=== PATIENT | female | born 1955 | race Caucasian/White ===

== ENCOUNTER 2022-06-21 07:52 | Inpatient (IN) | payer OTHER ==
[~2022-06-21] VITALS: Ht 152.4 cm; Wt 58.5 kg
[2022-06-21] VITALS (12 sets, daily range): BP systolic 86–145; BP diastolic 47–97
[2022-06-21] MEDS ORDERED: PIPERACILLIN/TAZOBACTAM 3.375 GM in DEXTROSE 5% 50 ML IV ONE (08:05)
[2022-06-21] MEDS ORDERED: ACETAMINOPHEN 650 MG SUPP RC ONE (08:05)
[2022-06-21] MEDS ORDERED: NACL 0.9% 1,000 ML IV ONE ×2 (08:05→09:15)
--- NOTE | 2022-06-21 08:09 | NUR ---
PT RECEIVED, CARE ASSUMED. PT CONFUSSED. PT BIB EMS FOR EVALAUTION OF SOB, LOW 02@ 81%. CALLED RT, PT PLACED ON NON-REBREATHER MASK @ 14, CONNECTED TO TELE MONITOR: SR 90, INSERTED 22G IV TO LEFT WRIST, AWAITIN TO BE SEEN BY
[2022-06-21 08:33] LABS: BASOPHILS # (AUTO) 0.1 K/uL (0.00-0.22); BASOPHILS % (AUTO) 0.7 % (0.0-2.0); EOSINOPHILS % (AUTO) 0.1 % (0.0-4.0); HEMATOCRIT 29.2 % (36-48); HEMOGLOBIN 9.3 g/dL (12.0-16.0); LYMPHOCYTES # (AUTO) 1.3 K/uL (2.5-16.5); LYMPHOCYTES % (AUTO) 13.7 % (20.5-51.1); MEAN CORPUSCULAR HEMOGLOBIN 30 pg (27-31); MEAN CORPUSCULAR HGB CONC 32 g/dL (33-37); MONOCYTES # (AUTO) 0.3 K/uL (0.8-1.0); NEUTROPHILS # (AUTO) 7.8 K/uL (1.8-7.7); NEUTROPHILS % (AUTO) 82.5 % (42.2-75.2); PLATELET COUNT (AUTO) 210 K/uL (140-450); RED BLOOD CELL COUNT(AUTO) 3.11 MIL/uL (4.20-5.40); RED CELL DISTRIBUTION WIDTH 14.6 % (11.6-13.7); WHITE BLOOD COUNT (AUTO) 9.4 K/uL (4.8-10.8)
--- NOTE | 2022-06-21 09:07 | NUR ---
PT STARTED ON HIGH FLOW NASAL CANNULA 40L 100% TEMP 33 C. SPO2 97% NO SOB NOTED.
[2022-06-21 09:08] LABS: LIPASE 131 U/L (73-393)
[2022-06-21] MEDS ORDERED: PIPERACILLIN/TAZOBACTAM 3.375 GM VIAL IV ONE (09:17)
[2022-06-21 09:21] LABS: PROTHROMBIN TIME 10.2 secs (10.8-13.4)
--- NOTE | 2022-06-21 09:33 | NUR ---
RECHECKED TEMPERATURE FROM 102.6 TO 99.6
--- NOTE | 2022-06-21 10:01 | NUR ---
PT LAYING IN BED WITH HIGH FLOW 02, IVF RUNNING WELL, F/C AND URINE COLLECTED. VITAL SIGNS NOTED. WILL CONTINUE TO MONITOR
[2022-06-21 11:08] LABS: APPEARANCE,URINE SL CLOUDY (CLEAR); BILIRUBIN,URINE NEGATIVE (NEGATIVE); BLOOD, URINE 1+ (NEGATIVE); COLOR,URINE YELLOW (YELLOW); LEUKOCYTE ESTERASE ,URINE TRACE (NEGATIVE); NITRITE, URINE POSITIVE (NEGATIVE); UGLUCOSE NEGATIVE (NEGATIVE)
[2022-06-21 12:18] LABS: RBC,URINE 0-5 /HPF (0-5)
[2022-06-21 12:19] LABS: COARSE GRANULAR CASTS,URINE 0-10 /LPF (None Seen)
--- NOTE | 2022-06-21 12:30 | NUR ---
NOTED: BLOOD PRESSURE HAS BEEN DECLINING. DR JOHNSON IS AWARE. PT ON TRENDELENBURG POSITION. WILL CONTINUE TO MONITOR
[2022-06-21] MEDS ORDERED: NOREPINEPHRINE 4 MG in DEXTROSE 5% 250 ML IV ONE (12:50)
--- NOTE | 2022-06-21 12:52 | NUR ---
PER DR HOLGUIN, PT TO BE PLACED ON LEVAPHED DRIP.
[2022-06-21 13:17] LABS: ALBUMIN 1.9 g/dL (3.4-5.0); ANION GAP 17.6 (8-16); CARBON DIOXIDE 21.4 mmol/L (21-32); CREATININE 2.6 mg/dL (0.6-1.3); TOTAL BILIRUBIN 0.2 mg/dL (0.0-1.0)
--- NOTE | 2022-06-21 13:20 | NUR ---
STARTED PT ON LEVAPHEN DRIP @ 4CG, 15ML/HR. WILL CONTINUE TO MONITOR
--- NOTE | 2022-06-21 14:12 | NUR ---
BP 88/55. RAISED LEVAPHED TO 6MCG/MIN. WILL CONTINUE TO MONITOR
[2022-06-21] MEDS ORDERED: ACETAMINOPHEN 325 MG TAB PO PRN (14:40)
[2022-06-21] MEDS ORDERED: ONDANSETRON 4 MG/2 ML VIAL IVP PRN (14:40)
[2022-06-21] MEDS ORDERED: ALBUTEROL SULFATE/IPRATROPIU 3 ML SOL IH PRN (14:40)
[2022-06-21] MEDS ORDERED: NACL 0.9% 1,000 ML IV SCH (14:40)
[2022-06-21] MEDS ORDERED: HYDROcodone/APAP 7.5/325 MG 1 TAB PO PRN (14:40)
[2022-06-21] MEDS ORDERED: ASCO-518 PO (14:49)
[2022-06-21] MEDS ORDERED: TRAZ-343 PO (14:49)
[2022-06-21] MEDS ORDERED: VITA1TAB44 PO (14:49)
[2022-06-21] MEDS ORDERED: RISP0.5T3 PO (14:49)
[2022-06-21] MEDS ORDERED: ATI.5 PO (14:49)
[2022-06-21] MEDS ORDERED: DIVA250E1 PO ×2 (14:49)
[2022-06-21] MEDS ORDERED: VANCOMYCIN PER PHARMACY MC PRN (14:55)
[2022-06-21] MEDS ORDERED: traZODone 50 MG TAB PO PRN (14:55)
[2022-06-21] MEDS ORDERED: POTASSIUM CHLORIDE 10 MEQ TABER PO PRN (14:55)
[2022-06-21] MEDS ORDERED: MAG SULF 2000 MG/WATER PREMIX 50 ML IV PRN (14:55)
--- NOTE | 2022-06-21 15:00 | NUR ---
Received pt lethargic. On high flow nasal cannula 40L, 95%. Sinus rhythm on monitor. Abd with active bowel sounds. Avalos catheter intact and draining to BSD. Peripheral IV on left hand 20 gauge intact and patent. Peripheral IV on APRYL intact and patent infusing Levophed @4mcg/min. Peripheral IV on right wrist saline locked. Safety precautions in place.
--- NOTE | 2022-06-21 15:05 | NUR ---
Patient will be admitted to care of ICU 7. Admited to ICU. Will go to room. Belongings list completed. Report to .
--- NOTE | 2022-06-21 15:54 | NUR ---
TITRATED FIO2 TO 80%. PT TOLERATING WELL, SPO2 97% HR 88 RR 20. WILL CONTINUE TO MONITOR.
[2022-06-21] MEDS ORDERED: VANCOMYCIN 500 MG in DEXTROSE 5% 100 ML IV SCH (18:00)
--- NOTE | 2022-06-21 18:05 | NUR ---
PT TITRATED TO FIO2 OF 70% TOLERATING WELL. SPO2 97% HR 66 RR 14. WILL ENDORSE TO SUPERVISOR HARD CANDY.
[2022-06-21] MEDS ORDERED: NOREPINEPHRINE 4 MG in DEXTROSE 5% 250 ML IV PRN (19:05)
--- NOTE | 2022-06-21 19:20 | NUR ---
Received report from Yolanda GRENE ANALYTICS ANALYST for continuity of care. Initial assessment done (Please see Flowsheet for complete Physical assessment)
[2022-06-21] MEDS: KCL 20 MEQ/WATER INJ PREMIX 200 ML IV PRN (19:21)
--- NOTE | 2022-06-21 19:33 | NUR ---
Endorsed to night coordinator nurse for continuity of care.
--- NOTE | 2022-06-21 21:00 | NUR ---
Patient taken to CT Head via Bed, Tolerated well.
--- NOTE | 2022-06-21 21:06 | NUR ---
PT TRANSPORTED TO CT AND BACK TO ICU 7 W/ NO ADVERSE EVENTS PT TOLERATED TRANSPORT WELL WILL CONTINUE TO MONITOR
[2022-06-21] MEDS: PIPERACILLIN/TAZOBACTAM 2.25 GM in DEXTROSE 5% 50 ML IV SCH (21:21)
[2022-06-21] MEDS: risperiDONE 1 MG TAB PO SCH (21:22)
[2022-06-21] MEDS: DOCUSATE SODIUM 100 MG GELCAP PO SCH (21:22)
[2022-06-21] MEDS: DIVALPROEX 250 MG TABEC PO SCH (21:23)
--- NOTE | 2022-06-21 21:40 | NUR ---
Due medications given, Tolerated well. Will closely Monitor for any adverse reactions that may occur.
--- NOTE | 2022-06-21 23:10 | NUR ---
HFNC TITRATED TO 36L 55% AND TOLERATING WELL AT THIS TIME W/ CURRENT SPO2 97% 5 MIN POST TITRATION
[2022-06-22] VITALS (23 sets, daily range): BP systolic 88–165; BP diastolic 54–98
--- NOTE | 2022-06-22 02:00 | NUR ---
Turn & Repositioned q2h as ordered. No pain or discomfort noted, No cardio-respiratory distress noted at this time. Patient Sleeping calmly.
[2022-06-22] MEDS: DIVALPROEX 250 MG TABEC PO SCH ×3 (05:00→21:55)
[2022-06-22] MEDS: PIPERACILLIN/TAZOBACTAM 2.25 GM in DEXTROSE 5% 50 ML IV SCH ×3 (05:37→21:56)
[2022-06-22 05:58] LABS: BASOPHILS % (AUTO) 0.3 % (0.0-2.0); EOSINOPHILS # (AUTO) 0.1 K/uL (0-0.4); EOSINOPHILS % (AUTO) 1.1 % (0.0-4.0); HEMATOCRIT 32.1 % (36-48); HEMOGLOBIN 10.1 g/dL (12.0-16.0); LYMPHOCYTES # (AUTO) 1.8 K/uL (2.5-16.5); LYMPHOCYTES % (AUTO) 17.4 % (20.5-51.1); MEAN CORPUSCULAR HEMOGLOBIN 30 pg (27-31); MEAN CORPUSCULAR HGB CONC 31 g/dL (33-37); MEAN CORPUSCULAR VOLUME 96.7 fL (80-94); MONOCYTES # (AUTO) 0.3 K/uL (0.8-1.0); MONOCYTES % (AUTO) 2.7 % (1.7-9.3); NEUTROPHILS # (AUTO) 8.2 K/uL (1.8-7.7); NEUTROPHILS % (AUTO) 78.5 % (42.2-75.2); PLATELET COUNT (AUTO) 236 K/uL (140-450); RED BLOOD CELL COUNT(AUTO) 3.32 MIL/uL (4.20-5.40); RED CELL DISTRIBUTION WIDTH 14.8 % (11.6-13.7); WHITE BLOOD COUNT (AUTO) 10.5 K/uL (4.8-10.8)
[2022-06-22 06:41] LABS: ANION GAP 15.7 (8-16); CARBON DIOXIDE 23.4 mmol/L (21-32); CREATININE 1.6 mg/dL (0.6-1.3); POTASSIUM 4.1 mmol/L (3.5-5.1)
[2022-06-22 06:59] LABS: MAGNESIUM 3.2 mg/dL (1.8-2.4); PHOSPHORUS 3.3 mg/dL (2.5-4.9)
[2022-06-22] MEDS: ALBUTEROL SULFATE/IPRATROPIU 3 ML SOL IH SCH ×3 (07:00→19:00)
--- NOTE | 2022-06-22 07:25 | NUR ---
Endorse pt. to Eli, AM Charge RECORDING [employer]UD[employer], for continuity of care. All questions answered. No pain, discomfort noted at this time, on Highflow @fiO2= 33%, sating 98%, Levophed Drip @ 4mcg/min.
--- NOTE | 2022-06-22 07:30 | NUR ---
RECEIVED ENDOSEMENT FROM [facility] PT. IS SLEEPING AT THE TIME , EASILY AWAKE BY NAME DID NOT FLLLOW COMMAND SHE IS O2 BY HIFLOW AT 33% O2SAT 94%IV FLUID NS AT 120 ML/HR FAUSTIN CATH DRAIN YELLOW URINE. SKIN DRY AND WARM TO TOUCH HAS SOME RED SPOT ON HER FACIAL.
[2022-06-22 08:20] LABS: PROTHROMBIN TIME 9.9 secs (10.8-13.4)
[2022-06-22] MEDS: risperiDONE 1 MG TAB PO SCH ×2 (08:35→21:55)
[2022-06-22] MEDS: PANTOPRAZOLE 40 MG INJ VIAL IVP SCH (08:35)
[2022-06-22] MEDS: VIT-B COMP/VIT-C/FOLIC ACID 1 TAB PO SCH (08:35)
[2022-06-22] MEDS: DOCUSATE SODIUM 100 MG GELCAP PO SCH ×2 (08:35→21:55)
[2022-06-22] MEDS: ASCORBIC ACID 500 MG TAB PO SCH (08:36)
[2022-06-22] MEDS ORDERED: NON-FORMULARY ITEM (Ascorbic Acid (Vitamin C) 500 MG) PO SCH (09:00)
--- NOTE | 2022-06-22 09:00 | NUR ---
ABLE TO SWALLOW HER MED CRUSH WITH APPLE SOURCE.
--- NOTE | 2022-06-22 09:15 | NUR ---
PATIENT HAS BEEN SCREENED AND CATEGORIZED HIGH NUTRITION RISK. PATIENT WILL BE SEEN WITHIN 1-2 DAYS OF ADMISSION. 06/22/2212 CONSULT RECEIVED FOR MALNUTRITION TACO ROBB RD
[2022-06-22] MEDS ORDERED: DEXTROSE 5% 500 ML IV SCH (11:15)
--- NOTE | 2022-06-22 12:45 | NUR ---
REPOSITION HAS SMERE DARK GREENISH BM.
--- NOTE | 2022-06-22 12:45 | NUR ---
DC PLANNIN YRS OLD FEMALE PATIENT WAS ADMITTED FROM [facility] WITH A DX OF SEPSIS AND HYPOTENSION. PATIENT HAS A HX OF COPD, SCHIZOAFFECTIVE TYPE BIPOLAR DEMENTIA AND CKD. CXR SHOWED BIBASILAR OPACITIES SUSPECT PNEUMONIA OR ATELECTASIS. CT HEAD NO EVIDENCE OF ACUTE INTRACRANIAL HEMORRHAGE. RAPID COVID TEST NEGATIVE. ADMINISTERED IVF, IV ABX ZOSYN AND VANCOMYCIN. ON LEVOPHED DRIP FOR LOW BP 94/57 . ON HF 40L/NC FIO2 70%. CONSULTED WITH PULMO, ID AND NEPHRO. DC PLAN TO RETURN TO [facility] WHEN STABLE. CM TO FOLLOW Addendum: 06/27/22 at 1304 by Nabila Keen RN DC PLANNING: PATIENT HAS A DC ORDER TO RETURN TO [facility]. CALLED [facility] SPOKE WITH MOE , ACCEPTED PATIENT CAN GO TO ROOM # TO GIVE REPORT [phone] MOE ARRANGED TRANSPORT RIVET BUCKER TIME BETWEEN 4-5PM WITH PERSONAL CARE TRANSPORTATION. NOTIFIED CHERI RICHTER
--- NOTE | 2022-06-22 12:46 | NUR ---
WOUND CARE EVALUATION NOTE: SKIN ASSESSMENT DONE WITH PRIMARY RN JOANNE ON THIS 66 Y/O PT. ADMITTED FROM SNF WITH HYPOXIA AND HYPOTENSION. PAST MEDICAL HX INCLUDES COPD, SCHIZOAFFECTIVE TYPE BIPOLAR, MDD, DEMENTIA, AND CKD. ALL ABOVE INFORMATION OBTAINED FROM ADMISSION H&P AND CHART REVIEWED. PT ADMITTED WITH UNSTAGEABLE COCCYX WOUND AND DTI TO SACRAL AREA. PT. IS ON LEVOPHED. PT IS AWAKE, SKIN IS WARM AND MOIST, BLE HAIR GROWTH, +1 EDEMA. DORSAL PEDAL PULSES PRESENT AND DIMINISHED. CAPILLARY REFILLED >3 SEC. X 10 TOES. COLD TO TOUCH, HEELS OFFLOAD, PT. WITH FEVER AND RESP. BETWEEN 19-34/ PER MINUTES DURING SKIN ASSESSMENT. PT IS VERY HI RISK OF FURTHER SKIN BREAKS. POC DISCUSSED WITH PRIMARY RN. COMORBIDITIES RELATED TO DELAY WOUND HEALING, FURTHER SKIN BREAKS AND UN-AVOIDABLE PRESSURE INJURY: BOWEL INCONTINENCE, INFECTION, , MALNUTRITION, HYPOXEMIC DECREASE TISSUE PERFUSION, TISSUE ISCHEMA, DECREASE MOBILITY AND FUNCTIONAL ABILITIES, AND HOB ELEVATED THE MAJORITY OF TIMES DUE TO MEDICAL REASONS. INTEGUMENTARY: -ORAL MEMBRANE PINK INTACT, LIPS, CHEEKS SKIN DRY, NO OPEN WOUNDS -MOISTURE ASSOCIATED DERMATITIS PERINEUM/INNER THIGHS, LOWER BUTTOCKS AND CHELLY-ANAL, SKIN RED AND MOIST -COCCYX PRESSURE INJURY UN-STAGEABLE 1X1.5CM, CHELLY-WOUND SKIN MOIST BLISTERING SKIN, THIN WITH DENUDED SKIN, SURROUNDING DTI EXTENDED TO SACRAL AREA 6x9CM IRREGULAR SHAPE, FURTHER DAMAGE INDICATED RECOMMENDATIONS: -APPLY Z-GUARD TO PERINEUM/INNER THIGHS, LOWER BUTTOCKS AND CHELLY-ANAL BID AND PRN IF SOILING -APPLY FOAM DRESSING TO SACRALCOCCYX, QD AND PRN IF SOILING, OFFLOAD AREA -APPLY SKIN PREP WIPE TO BILATERAL HEELS BID AND PRN IF SOILING -POSITIONING: TURN AND REPOSITION PATIENT Q 2H OR SOONER USE PILLOWS TO KEEP BONY PROMINENCES FROM DIRECT CONTACT WITH SURFACES USE REPOSITIONING WEDGES TO PROVIDE 30-DEGREE ANGLE FOR SIDE LYING POSITIONS OFFLOADING OR FOAM DRESSING TO ALL TUBING TO PREVENT MEDICAL DEVICES RELATED PRESSURE INJURY -RE-EVALUATING AND MANAGING INCONTINENCE MONITOR SKIN CONDITION DURING POSITION CHANGE DO NOT MASSAGE REDNESS, BONY PROMINENCES FREQUENT CHELLY-CARE AND PROVIDE BARRIER CREAMS PRN IF SOILING MOISTURE CONTROL BY OFFER BED MIXON/URINAL /ABSORBENT PAD TO WICK AND HOLD MOISTURE. MAY OBTAIN ORDER FOR FLEX SEAL, RECTAL BAG OR FAUSTIN CATHETER PER PHYSICIAN ORDER UNLESS OTHERWISE CONTRAINDICATED KEEP SKIN DRY AND PROTECT FROM FRICTION -MANAGE FRICTION/SHEAR/MOBILITY KEEP HOB AT THE LOWEST LEVEL OF ELEVATION NO MORE THAN 30 DEGREES UNLESS OTHERWISE CONTRAINDICATED USE LIFT SHEET OR TRANSFER DEVICE TO MOVE PATIENT AND PREVENT LATERAL SHEER. CONSIDER TRAPEZE IF APPROPRIATE PROTECT HEELS, ELBOWS BONY PROMINENCES WITH SKIN BERRIES OR FOAM DRESSING IF EXPOSED TO FRICTION OFFLOAD BILATERAL HEELS BY PLACING PILLOWS UNDER CALVES AT ALL TIMES, UNLESS OTHERWISE CONTRAINDICATED -PRESSURE REDISTRIBUTION SURFACE THERAPY NAMITA ISOFLEX ABHISHEK MATTRESS -NUTRITION: PLEASE FOLLOW RD RECOMMENDATIONS AND OFFER NUTRITION SUPPLEMENTS IF ORDERED.
[2022-06-22] MEDS ORDERED: Z-GUARD PASTE TP PRN (12:55)
[2022-06-22] MEDS ORDERED: FOAM DRESSING TP PRN (12:55)
[2022-06-22] MEDS: FOAM DRESSING TP SCH (13:01)
[2022-06-22] MEDS: Z-GUARD PASTE TP SCH (13:01)
--- NOTE | 2022-06-22 13:45 | NUR ---
SEEN BY DR. ADAMS AT BEDSIDE NO ORDER CHANGED.
--- NOTE | 2022-06-22 14:02 | NUR ---
SEEN BY DR MIRANDA WITH STUDENTS.
[2022-06-22] MEDS ORDERED: NACL 0.45% 1,000 ML IV SCH (16:30)
[2022-06-22 17:35] LABS: ANION GAP 14.4 (8-16); CARBON DIOXIDE 21.9 mmol/L (21-32); CREATININE 1.2 mg/dL (0.6-1.3); POTASSIUM 3.3 mmol/L (3.5-5.1)
[2022-06-22] MEDS ORDERED: acetaZOLAMIDE sodium 500 MG VIAL IVP SCH (18:30)
[2022-06-22] MEDS ORDERED: KCL 20 MEQ/WATER INJ PREMIX 100 ML IV ONE (18:30)
--- NOTE | 2022-06-22 19:10 | NUR ---
REPORT GIVE TO BEVERLY RICHTER.
[2022-06-22] MEDS: DEXTROSE 5% 1,000 ML IV SCH (19:30)
--- NOTE | 2022-06-22 22:30 | NUR ---
CALL PLACED TO DR. ALAN TO OBTAIN AN ORDER FOR A DIFFERENT ROUTE OF ADMINISTERING DEPAKOTE BECAUSE PT WONT SWALLOW IT SHE CONTINOUSLY SPIT IT OUT ALONG WITH THE COLACE. SHE DIDN'T RECEIVE HER [address] ORDER THE ROUTE CHANGE TO IV FOR THE DEPAKOTE; NO MENTION OF THE COLACE.CALLED [facility], JENI SAID IT SHOULD BR IN THE ED,BUT THE ED NURSE COULDN'T LOCATE IT.
[2022-06-23] VITALS (24 sets, daily range): BP systolic 92–155; BP diastolic 54–93
[2022-06-23] MEDS: Z-GUARD PASTE TP SCH ×2 (01:00→13:36)
[2022-06-23] MEDS: DIVALPROEX 250 MG TABEC PO SCH ×3 (05:00→21:12)
[2022-06-23] MEDS: PIPERACILLIN/TAZOBACTAM 2.25 GM in DEXTROSE 5% 50 ML IV SCH ×3 (05:32→21:12)
[2022-06-23 05:56] LABS: BASOPHILS % (AUTO) 0.4 % (0.0-2.0); EOSINOPHILS # (AUTO) 0.2 K/uL (0-0.4); EOSINOPHILS % (AUTO) 2.1 % (0.0-4.0); HEMATOCRIT 28.4 % (36-48); HEMOGLOBIN 9.2 g/dL (12.0-16.0); LYMPHOCYTES # (AUTO) 1.5 K/uL (2.5-16.5); LYMPHOCYTES % (AUTO) 20.4 % (20.5-51.1); MEAN CORPUSCULAR HEMOGLOBIN 30 pg (27-31); MEAN CORPUSCULAR HGB CONC 33 g/dL (33-37); MEAN CORPUSCULAR VOLUME 93.2 fL (80-94); MONOCYTES # (AUTO) 0.3 K/uL (0.8-1.0); MONOCYTES % (AUTO) 3.6 % (1.7-9.3); NEUTROPHILS # (AUTO) 5.5 K/uL (1.8-7.7); NEUTROPHILS % (AUTO) 73.5 % (42.2-75.2); PLATELET COUNT (AUTO) 234 K/uL (140-450); RED BLOOD CELL COUNT(AUTO) 3.05 MIL/uL (4.20-5.40); RED CELL DISTRIBUTION WIDTH 14.4 % (11.6-13.7); WHITE BLOOD COUNT (AUTO) 7.5 K/uL (4.8-10.8)
[2022-06-23] MEDS: ALBUTEROL SULFATE/IPRATROPIU 3 ML SOL IH SCH ×3 (07:03→19:00)
[2022-06-23 07:08] LABS: ANION GAP 13.4 (8-16); CARBON DIOXIDE 23.2 mmol/L (21-32); POTASSIUM 3.6 mmol/L (3.5-5.1)
--- NOTE | 2022-06-23 07:21 | NUR ---
SBAR REPORT RECEIVED FROM BEVERLY RICHTER, ALL CARES ASSUMED. PT RESTING WITH EYES CLOSED. PT ON HIGH FLOW NC 30L 45%. FAUSTIN CATHETER DRAINING TO GRAVITY. D5W INFUSING at 125 mL/hr TO RIGHT 20G AC IV CATHETER. BED IN LOW AND LOCKED POSITION. CALL LIGHT WITHIN REACH.
[2022-06-23 07:23] LABS: FREE T4 (FREE THYROXINE) 0.92 ng/dL (0.76-1.46); MAGNESIUM 2.5 mg/dL (1.8-2.4); PHOSPHORUS 1.7 mg/dL (2.5-4.9); THYROID STIMULATING HORMONE 5.11 uIU/mL (0.34-3.74)
[2022-06-23] MEDS: PANTOPRAZOLE 40 MG INJ VIAL IVP SCH (09:00)
[2022-06-23] MEDS: ASCORBIC ACID 500 MG TAB PO SCH (09:00)
[2022-06-23] MEDS: DOCUSATE SODIUM 100 MG GELCAP PO SCH ×2 (09:00→21:12)
[2022-06-23] MEDS: risperiDONE 1 MG TAB PO SCH ×2 (09:00→21:13)
[2022-06-23] MEDS: VIT-B COMP/VIT-C/FOLIC ACID 1 TAB PO SCH (09:00)
[2022-06-23] MEDS ORDERED: VANCOMYCIN 750 MG in DEXTROSE 5% 250 ML IV SCH (10:00)
[2022-06-23] MEDS: DEXTROSE 5% 1,000 ML IV SCH ×2 (10:20→17:02)
[2022-06-23 10:49] LABS: MAGNESIUM 2.5 mg/dL (1.8-2.4); PHOSPHORUS 1.7 mg/dL (2.5-4.9)
--- NOTE | 2022-06-23 12:58 | NUR ---
LESA PLANNING PATIENT IS A 67 YEAR OLD FEMALE ADMITTED TO [facility]/ED IN 06/21/2022 DUE TO SEPSIS,HYPOTENSION. SW ATTEMPTED TO MEET WITH PATIENT TO DISCUSS AND GATHER HER COLLATERAL INFORMATION. PATIENT WAS NOT AWAKE AND ALERT AT THE TIME OF THE VISIT. PATIENT WAS UNABLE TO PROVIDE HER OWN INFORMATION. SW CALL PATIENT'S VANDANA ELKINS AT TO DISCUSS AND GATHER HER COLLATERAL INFORMATION. PER PATIENT'S POA PATIENT HAS BEEN HER FRIEND FRO SOME TIME BY [employer] ([employer] [employer] [facility] ABOUT 2 YEARS AND HAD LET PATIENT LIVE IN HER TRAILER AND RENT HER A ROOM HOWEVER ABOUT 3 MONTHS AGO IN FEBRUARY PATIENT BECAME ILL AND HER HEALTH DECLINED AND END UP IN THE HOSPITAL SINCE THEN SHE HAS BEEN IN AND OUT OF HOSPITALS AND [facility] AND MUST RECENTLY [facility] WHERE SHE END UP AT [facility]. DUE TO UTI AND OTHER ISSUES WITH BALANCE. PER VANDANA LAU [facility] CONTACT HER ABOUT A WEEK AGO TELLING HER THAT PATIENT CAN NOT STAY THERE ANY LONGER DUE TO THEY NOT BEEN A DETENTION SNF AND [facility] BEEN A REHAB AND YESTERDAY VANDANA JUST FIND OUT THAT PATIENT WAS SEND TO [facility] DUE TO PNEUMONIA. PER VANDANA LAU SHE IS UNABLE TO CARE FOR PATIENT AT HOME AND AT DISCHARGE A DETENTION PLACEMENT NEEDS TO BE FOUND SINCE PATIENT HAS NO OTHER PLACE TO GO. PER VANDANA. PATIENT HAS NO OTHER FAMILY MEMBER AND HER FRIEND AND VANDANA IS HER WITH DOCUMENTS ON CHART. PER VANDANA ELKINS PATIENT RECEIVES SSI OF 970.00 A MONTH AND NO OTHER INCOME. PER VANDANA ELKINS SHE WILL LIKE AN UPDATE ABOUT PATIENT'S PLACEMENT AND HEALTH STATUS WHEN SHE IS READY AND STABLE TO DISCHARGE. ALLIE THANKED VANDANA FOR HER INFORMATION. ALLIE/CM WILL FOLLOW UP NEEDED. ALLIE WILL ENDORSE INFORMATION TO CM AND SKIP TRACER DIRECTOR SANDER Espana. ALLIE WILL CONTACT [facility] WHERE SHE IS COMING FROM. ALLIE ATTEMPTED TO CONTACT [facility] MOE AT SPOKE TO PROJECT PLANNER JOAN WHO REPORTED THAT SHE IS NOT AVAILABLE AND REQUESTED THIS WRITERS DIRECT CONTACT RUTHIE FOR A CALL BACK SINCE SHE IS UNAVAILABLE. ALLIE LEFT DIRECT CONTACT AND SPOKE TO SW/CM DIRECTOR SANDER B. TO EDORSE INFORMATION ABOUT PATIENT WITH FACILITY UNABLE TO RETURN TO [facility] ACCORDING TO PATIENT'S POA. SW/CM AND DIRECTOR WILL FOLLOW UP NEEDED.
[2022-06-23] MEDS: FOAM DRESSING TP SCH (13:36)
--- NOTE | 2022-06-23 14:06 | NUR ---
06/23/22 RD INITIAL ASSESSMENT COMPLETED PLEASE REFER TO NUTRITION ASSESSMENT UNDER CARE ACTIVITY FOR ESTIMATED NUTRITIONAL NEEDS. 1. RECOMMEND CARDIAC DIET WITH TEXTURE MODIFICATION PER SPEECH THERAPIST -RECOMMEND PROSOURCE BID TO PROMOTE WOUND HEALING 2. CONSULT RD PRN 3. MONITOR NUTRITION-RELATED LAB VALUES 4. RD TO FOLLOW-UP 2-3 DAYS, HIGH RISK TACO ROBB RD
[2022-06-23] MEDS ORDERED: LACTULOSE 20 GM/30 ML UDC PO SCH (14:30)
--- NOTE | 2022-06-23 19:10 | NUR ---
RECEIVED REPORT FROM NEELAM BRITO.PT IS IN REPORTED STATUS.RESPIRATORY IS AT THE BEDSIDE REMOVING PT FROM THE HI FLOW NI TECH UNIT AND PLACING HER ON 10 LITERS VIA THE WALL UNIT AT 10L NOW INSTEAD OF THE 14L. PT TEMP IS CONTROLLED TODAY ONLY 97.7AX.SHE IS NOW ON A PUREED DIET. WE WILL SEE IF SHE TAKES THE DEPAKOTE TONIGHT; SHE REPORTEDLY TOOK THE DEPAKOTE PO TODAY W/O SPITTING IT OUT.PT'S NA++ REMAINS ELEVATED SO SJE IS CONTINUING ON THE D5W AT 125CC/HOUR.
--- NOTE | 2022-06-23 19:11 | NUR ---
FOUND PATIENT ON HFNC 14L 40% 33 DEGREES. PATIENT SATING AT 98% SPO2. PATIENT TO BE WEANED TO BUBBLE NASAL CANULA. NO RESPIRTATORY DISTRESS NOTED.
--- NOTE | 2022-06-23 19:15 | NUR ---
PLACED PATIENT ON BUBBLE NASAL CANULA AT 14 L TO SEE HOW THEY WOULD TOLERATE IT AND THEN TITRATED THEM TO 10 L. PATIENTS SPO2 INCREASED TO 100%. WILL CONTINUE TO MONITOR AND SEE IF WE CAN CONTINUE TO TITRATE.
--- NOTE | 2022-06-23 19:21 | NUR ---
SBAR REPORT GIVEN TO BEVERLY RICHTER, ALL CARES ENDORSED.
[2022-06-23] MEDS ORDERED: POTASSIUM CHLORIDE 20% 40 MEQ/15 ML UDC PO PRN (20:25)
[2022-06-24] VITALS (11 sets, daily range): BP systolic 90–158; BP diastolic 57–90
[2022-06-24] MEDS: DEXTROSE 5% 1,000 ML IV SCH
[2022-06-24] MEDS: Z-GUARD PASTE TP SCH ×2 (00:48→13:27)
[2022-06-24] MEDS: PIPERACILLIN/TAZOBACTAM 2.25 GM in DEXTROSE 5% 50 ML IV SCH ×3 (04:57→21:41)
[2022-06-24] MEDS: DIVALPROEX 250 MG TABEC PO SCH ×3 (05:03→21:41)
[2022-06-24 06:00] LABS: ANION GAP 14.8 (8-16); CARBON DIOXIDE 21.6 mmol/L (21-32); CREATININE 0.8 mg/dL (0.6-1.3); POTASSIUM 3.4 mmol/L (3.5-5.1)
--- NOTE | 2022-06-24 06:02 | NUR ---
PT DIDN'T HAVE A BM THIS AM. NO MORE DIARRHEA NOTED. PT DOES HAVE A PRODUCTIVE SOUNDING COUGH ,BUT SHE IS TO WEAK TO EXPECTORATE.
--- NOTE | 2022-06-24 06:02 | NUR ---
PT HAS DROPPED HER HEART RATE INTO THE 40'S, BUT IT'S NOT SUSTAINED. SHE HAS NO CHANGE IN HER PHYSICAL DEMEANOR.
[2022-06-24 06:16] LABS: BASOPHILS % (AUTO) 0.6 % (0.0-2.0); EOSINOPHILS # (AUTO) 0.2 K/uL (0-0.4); EOSINOPHILS % (AUTO) 3.5 % (0.0-4.0); HEMATOCRIT 26.9 % (36-48); HEMOGLOBIN 8.9 g/dL (12.0-16.0); LYMPHOCYTES # (AUTO) 2.1 K/uL (2.5-16.5); LYMPHOCYTES % (AUTO) 34.8 % (20.5-51.1); MEAN CORPUSCULAR HEMOGLOBIN 31 pg (27-31); MEAN CORPUSCULAR HGB CONC 33 g/dL (33-37); MEAN CORPUSCULAR VOLUME 93.6 fL (80-94); MONOCYTES # (AUTO) 0.3 K/uL (0.8-1.0); MONOCYTES % (AUTO) 4.6 % (1.7-9.3); NEUTROPHILS # (AUTO) 3.4 K/uL (1.8-7.7); NEUTROPHILS % (AUTO) 56.5 % (42.2-75.2); PLATELET COUNT (AUTO) 184 K/uL (140-450); RED BLOOD CELL COUNT(AUTO) 2.87 MIL/uL (4.20-5.40)
[2022-06-24 06:36] LABS: MAGNESIUM 1.9 mg/dL (1.8-2.4); PHOSPHORUS 2.8 mg/dL (2.5-4.9)
[2022-06-24] MEDS: ALBUTEROL SULFATE/IPRATROPIU 3 ML SOL IH SCH ×3 (06:57→19:28)
--- NOTE | 2022-06-24 07:28 | NUR ---
SBAR REPORT RECEIVED FROM BEVERLY RICHTER, ALL CARES ASSUMED. PT RESTING IN BED WITH EYES CLOSED. PT ON 10L HIGH FLOW BUBBLER NC. FAUSTIN CATHETER DRAINING TO GRAVITY. D5W INFUSING TO RIGHT WRIST IV. BED IN LOW, LOCKED POSITION. CALL LIGHT WITHIN REACH.
--- NOTE | 2022-06-24 07:45 | NUR ---
RECEIVED PT ON 10L BUBBLE NASAL CANNULA. SATURATION 98% WILL TITRATE DOWN IF NECESSARY. CLEAR BREATH SOUNDS ON LEFT, RIGHT SIDE RHONCHI. NO DISTRESS NOTED. WILL CONTINUE TO MONITOR.
[2022-06-24] MEDS: VIT-B COMP/VIT-C/FOLIC ACID 1 TAB PO SCH (08:39)
[2022-06-24] MEDS: DOCUSATE SODIUM 100 MG GELCAP PO SCH ×2 (08:39→21:44)
[2022-06-24] MEDS: risperiDONE 1 MG TAB PO SCH ×2 (08:39→21:41)
[2022-06-24] MEDS: ASCORBIC ACID 500 MG TAB PO SCH (08:39)
[2022-06-24] MEDS: PANTOPRAZOLE 40 MG INJ VIAL IVP SCH (08:40)
[2022-06-24] MEDS: NACL 0.45% 1,000 ML IV SCH ×2 (10:10→21:44)
[2022-06-24] MEDS: methylPREDNISolone SS 40 MG/ML VIAL IVP SCH (11:35)
[2022-06-24] MEDS: FOAM DRESSING TP SCH (13:27)
--- NOTE | 2022-06-24 19:31 | NUR ---
SBAR REPORT GIVEN TO ELVI RICHTER, ALL CARES ENDORSED.
--- NOTE | 2022-06-24 23:35 | NUR ---
RECEIVED PATIENT FROM ICU WITH O2 AT 5L NC TOLERATING WELL SATING AT 99%. BREATHING NORMAL WITH SYMMETRICAL RISE AND FALL OF THE CHEST. IVF 1/2 NS INFUSING WELL. ALL SAFETY PRECAUTIONS ARE IN PLACE. CALL LIGHT WITHIN REACH. BED WHEELS LOCKED, HEAD OF BED ELEVATED. WILL CONTINUE TO MONITOR PATIENT. Addendum: 06/25/22 at 0030 by Helena Lowe RN RN REPORT GIVEN BY ICU NURSE BOLES FOR CONTINUITY OF CARE.
[2022-06-25] VITALS: BP 122/75
[2022-06-25] MEDS: Z-GUARD PASTE TP SCH ×2 (01:13→13:00)
[2022-06-25 04:00] VITALS: BP 109/69
[2022-06-25] MEDS: PIPERACILLIN/TAZOBACTAM 2.25 GM in DEXTROSE 5% 50 ML IV SCH ×3 (04:54→21:43)
[2022-06-25] MEDS: DIVALPROEX 250 MG TABEC PO SCH (05:09)
--- NOTE | 2022-06-25 06:00 | NUR ---
PATIENT HAS DIARRHEA, CLEANED , CHANGED AND REPOSITIONED.
[2022-06-25 06:58] LABS: BASOPHILS % (AUTO) 0.6 % (0.0-2.0); EOSINOPHILS # (AUTO) 0.2 K/uL (0-0.4); EOSINOPHILS % (AUTO) 2.7 % (0.0-4.0); HEMATOCRIT 25.7 % (36-48); HEMOGLOBIN 8.5 g/dL (12.0-16.0); LYMPHOCYTES # (AUTO) 1.6 K/uL (2.5-16.5); MEAN CORPUSCULAR HEMOGLOBIN 31 pg (27-31); MEAN CORPUSCULAR HGB CONC 33 g/dL (33-37); MONOCYTES # (AUTO) 0.3 K/uL (0.8-1.0); MONOCYTES % (AUTO) 3.6 % (1.7-9.3); NEUTROPHILS # (AUTO) 5.2 K/uL (1.8-7.7); NEUTROPHILS % (AUTO) 71.1 % (42.2-75.2); PLATELET COUNT (AUTO) 236 K/uL (140-450); RED BLOOD CELL COUNT(AUTO) 2.76 MIL/uL (4.20-5.40); WHITE BLOOD COUNT (AUTO) 7.3 K/uL (4.8-10.8)
[2022-06-25 07:06] LABS: PHOSPHORUS 2.8 mg/dL (2.5-4.9)
[2022-06-25 07:09] LABS: ANION GAP 11.9 (8-16); CARBON DIOXIDE 25.6 mmol/L (21-32); CREATININE 0.7 mg/dL (0.6-1.3); POTASSIUM 3.5 mmol/L (3.5-5.1)
--- NOTE | 2022-06-25 07:09 | NUR ---
BEDSIDE REPORT GIVEN TO DAY SHIFT NURSE CECILIO FOR CONTINUITY OF CARE.
--- NOTE | 2022-06-25 07:30 | NUR ---
Received pt alert and confused. On 5L O2 via nasal cannula. Sinus rhythm on tele monitor. Abd soft with active bowel sounds. Avalos catheter intact and draining to bedside drainage. Peripheral IV 24 gauge on right wrist intact and patent infusing 1/2NS @75ml/hr. Peripheral IV 20 gauge on left hand saline locked. Safety precautions in place.
[2022-06-25 08:00] VITALS: BP 109/70
[2022-06-25] MEDS: methylPREDNISolone SS 40 MG/ML VIAL IVP SCH (08:37)
[2022-06-25] MEDS: PANTOPRAZOLE 40 MG INJ VIAL IVP SCH (08:37)
[2022-06-25] MEDS: VIT-B COMP/VIT-C/FOLIC ACID 1 TAB PO SCH (08:38)
[2022-06-25] MEDS: DOCUSATE SODIUM 100 MG GELCAP PO SCH ×2 (08:38→21:44)
[2022-06-25] MEDS: risperiDONE 1 MG TAB PO SCH ×2 (08:38→21:44)
[2022-06-25] MEDS: ASCORBIC ACID 500 MG TAB PO SCH (08:39)
--- NOTE | 2022-06-25 10:37 | NUR ---
P.T. NOTES P.T. EVAL COMPLETED; REFER TO EVAL FOR DETAILS.
[2022-06-25] MEDS: ALBUTEROL SULFATE/IPRATROPIU 3 ML SOL IH SCH ×3 (11:30→20:20)
[2022-06-25 12:00] VITALS: BP 137/90
--- NOTE | 2022-06-25 12:00 | NUR ---
Made rounds. Pt resting in bed comfortably. No respiratory distress.
[2022-06-25] MEDS: FOAM DRESSING TP SCH (13:00)
[2022-06-25] MEDS: NACL 0.45% 1,000 ML IV SCH ×2 (14:17→22:23)
[2022-06-25 16:00] VITALS: BP 134/84
--- NOTE | 2022-06-25 19:25 | NUR ---
Endorsed to night coordinator nurse Helena for continuity of care.
[2022-06-25 20:00] VITALS: BP 108/67
[2022-06-25] MEDS: DIVALPROEX SPRINKLES 125 MG CAPDR PO SCH (21:43)
--- NOTE | 2022-06-25 21:45 | NUR ---
ADMINISTERED ALL 2100 SCHEDULED MEDICATIONS.
[2022-06-26] VITALS: BP 114/66
[2022-06-26] MEDS: Z-GUARD PASTE TP SCH ×2 (01:00→13:31)
--- NOTE | 2022-06-26 03:02 | NUR ---
PATIENT CLEANED, CHANGED AND REPOSITIONED.
[2022-06-26 04:00] VITALS: BP 123/63
[2022-06-26] MEDS: PIPERACILLIN/TAZOBACTAM 2.25 GM in DEXTROSE 5% 50 ML IV SCH ×3 (05:12→22:36)
--- NOTE | 2022-06-26 05:12 | NUR ---
ZOSYN ADMINISTERED ORDERED.
[2022-06-26] MEDS: DIVALPROEX SPRINKLES 125 MG CAPDR PO SCH ×3 (05:13→22:37)
[2022-06-26] MEDS: ALBUTEROL SULFATE/IPRATROPIU 3 ML SOL IH SCH ×3 (07:00→19:30)
--- NOTE | 2022-06-26 07:19 | NUR ---
ENDORSED PATIENT TO MORNING SHIFT NURSE MAYCOL FOR CONTINUITY OF CARE.
[2022-06-26 07:27] LABS: BASOPHILS # (AUTO) 0.1 K/uL (0.00-0.22); BASOPHILS % (AUTO) 0.9 % (0.0-2.0); EOSINOPHILS # (AUTO) 0.2 K/uL (0-0.4); HEMATOCRIT 26.3 % (36-48); HEMOGLOBIN 8.6 g/dL (12.0-16.0); LYMPHOCYTES # (AUTO) 2.3 K/uL (2.5-16.5); MEAN CORPUSCULAR HEMOGLOBIN 31 pg (27-31); MEAN CORPUSCULAR HGB CONC 33 g/dL (33-37); MEAN CORPUSCULAR VOLUME 93.3 fL (80-94); MONOCYTES # (AUTO) 0.3 K/uL (0.8-1.0); NEUTROPHILS % (AUTO) 63.1 % (42.2-75.2); PLATELET COUNT (AUTO) 252 K/uL (140-450); RED BLOOD CELL COUNT(AUTO) 2.81 MIL/uL (4.20-5.40); RED CELL DISTRIBUTION WIDTH 13.9 % (11.6-13.7); WHITE BLOOD COUNT (AUTO) 7.8 K/uL (4.8-10.8)
[2022-06-26 07:51] LABS: ANION GAP 11.4 (8-16); CREATININE 0.8 mg/dL (0.6-1.3); POTASSIUM 3.4 mmol/L (3.5-5.1)
--- NOTE | 2022-06-26 07:51 | NUR ---
GOT REPORT FROM THE NIGHT NURSE, PT IS SLEEPING, NO SOB. [id number]
[2022-06-26 07:54] LABS: MAGNESIUM 2.1 mg/dL (1.8-2.4); PHOSPHORUS 2.8 mg/dL (2.5-4.9)
[2022-06-26 08:00] VITALS: BP 123/73
[2022-06-26] MEDS: NACL 0.45% 1,000 ML IV SCH ×3 (08:23→18:28)
[2022-06-26] MEDS: VIT-B COMP/VIT-C/FOLIC ACID 1 TAB PO SCH (09:00)
[2022-06-26] MEDS: risperiDONE 1 MG TAB PO SCH ×2 (09:00→22:37)
[2022-06-26] MEDS: DOCUSATE SODIUM 100 MG GELCAP PO SCH ×2 (09:00→22:40)
[2022-06-26] MEDS: ASCORBIC ACID 500 MG TAB PO SCH (09:00)
[2022-06-26] MEDS: methylPREDNISolone SS 40 MG/ML VIAL IVP SCH (09:49)
[2022-06-26] MEDS: PANTOPRAZOLE 40 MG INJ VIAL IVP SCH (09:49)
[2022-06-26] MEDS: KCL 20 MEQ/WATER INJ PREMIX 200 ML IV PRN (09:51)
[2022-06-26 12:00] VITALS: BP 111/64
[2022-06-26] MEDS: FOAM DRESSING TP SCH (13:31)
[2022-06-26 15:24] LABS: BARBITURATE, URINE NEGATIVE ng/ml (NEG <=200); BENZODIAZEPINE, URINE NEGATIVE ng/mL (NEG <=200); COCAINE, URINE NEGATIVE ng/mL (NEG <=300)
[2022-06-26 15:25] LABS: CANNABINOID, URINE NEGATIVE ng/mL (NEG <=50); OPIATE, URINE NEGATIVE ng/mL (NEG <=2000); PHENCYCLIDINE SCREEN,URINE NEGATIVE ng/mL (NEG <=25)
[2022-06-26 16:00] VITALS: BP 93/60
--- NOTE | 2022-06-26 19:11 | NUR ---
06/26/22 RD FOLLOW UP COMPLETED.PLEASE REFER TO NUTRITION ASSESSMENT UNDER CARE ACTIVITY FOR ESTIMATED NUTRITIONAL NEEDS. 1. CONTINUE WITH PUREE DIET 2. RECOMMEND PROSOURCE BID + NEPRO TO PROMOTE WOUND HEALING AND OPTIMIZE NUTRITIONAL NEEDS. 3.MONITOR PO INTAKE AND FOR WOUND HEALING. 4. RD TO FOLLOW-UP IN 3-5 DAYS PATIENT IS MODERATE RISK. RYAN MEDINA RD
[2022-06-26 20:00] VITALS: BP 152/96
--- NOTE | 2022-06-26 22:37 | NUR ---
ALL SCHEDULED MEDICATIONS ADMINISTERED. PATIENT AWAKE NO DISTRESS NOTED. BREATHING EVEN UNLABORED. SAFETY MEASURES IN PLACE. CALL LIGHT WITHIN REACH. DENIES PAIN.
--- NOTE | 2022-06-26 23:05 | NUR ---
IV PULLED OUT. STARTED A NEW IV ON THE LEFT FOREARM WITH GOOD BACK FLOW OF BLOOD.
[2022-06-27] VITALS: BP 142/82
[2022-06-27] MEDS ORDERED: WATER STERILE 10 ML VIAL MC SCH
[2022-06-27] MEDS: Z-GUARD PASTE TP SCH ×2 (01:00→12:54)
[2022-06-27 04:00] VITALS: BP 120/75
[2022-06-27] MEDS: NACL 0.45% 1,000 ML IV SCH (04:23)
[2022-06-27] MEDS: PIPERACILLIN/TAZOBACTAM 2.25 GM in DEXTROSE 5% 50 ML IV SCH ×2 (05:15→12:53)
[2022-06-27] MEDS: DIVALPROEX SPRINKLES 125 MG CAPDR PO SCH ×2 (05:16→12:56)
--- NOTE | 2022-06-27 07:26 | NUR ---
ENDORSED TO DAY SHIFT NURSE CHERI FOR CONTINUITY OF CARE.
[2022-06-27 08:00] VITALS: BP 143/92
[2022-06-27] MEDS: ALBUTEROL SULFATE/IPRATROPIU 3 ML SOL IH SCH ×2 (08:24→13:48)
[2022-06-27] MEDS: VIT-B COMP/VIT-C/FOLIC ACID 1 TAB PO SCH (09:28)
[2022-06-27] MEDS: ASCORBIC ACID 500 MG TAB PO SCH (09:29)
[2022-06-27] MEDS: PANTOPRAZOLE 40 MG INJ VIAL IVP SCH (09:29)
[2022-06-27] MEDS: risperiDONE 1 MG TAB PO SCH (09:29)
[2022-06-27] MEDS: methylPREDNISolone SS 40 MG/ML VIAL IVP SCH (09:29)
[2022-06-27] MEDS: DOCUSATE SODIUM 100 MG GELCAP PO SCH (09:29)
[2022-06-27] MEDS ORDERED: PRED20TA5 PO (11:03)
[2022-06-27] MEDS ORDERED: PIPE50SO5 IV (11:03)
[2022-06-27 12:00] VITALS: BP 138/88
[2022-06-27] MEDS: FOAM DRESSING TP SCH (12:54)
[2022-06-27] MEDS ORDERED: DEXTROSE 5% 1,000 ML IV SCH (13:35)
[2022-06-27] MEDS ORDERED: POTASSIUM CHLORIDE 10 MEQ TABER PO SCH (14:00)
== END 2022-06-27 16:41 | DRG 871 ==
LOC: MED 07:52 → MIC 14:01 → MTU 06-24 22:12
PROC: 5A0935A Assistance with Respiratory Ventilation, Less than 24 Consecutive Hours, High Flow/Velocity Cannula (ICD-10-PCS; principal; 2022-06-21)
PROC: 5A0935A Assistance with Respiratory Ventilation, Less than 24 Consecutive Hours, High Flow/Velocity Cannula (ICD-10-PCS; 2022-06-22)
PROC: 5A0935A Assistance with Respiratory Ventilation, Less than 24 Consecutive Hours, High Flow/Velocity Cannula (ICD-10-PCS; 2022-06-23)
PROC: 5A0935A Assistance with Respiratory Ventilation, Less than 24 Consecutive Hours, High Flow/Velocity Cannula (ICD-10-PCS; 2022-06-24)
DX: A41.9 Sepsis, unspecified organism (principal); E43 Unspecified severe protein-calorie malnutrition; J69.0 Pneumonitis due to inhalation of food and vomit; N17.0 Acute kidney failure with tubular necrosis; R65.21 Severe sepsis with septic shock; J96.01 Acute respiratory failure with hypoxia; J44.0 Chronic obstructive pulmonary disease with (acute) lower respiratory infection; E87.0 Hyperosmolality and hypernatremia; E72.4 Disorders of ornithine metabolism; Z20.822 Contact with and (suspected) exposure to COVID-19; F03.90 Unspecified dementia, unspecified severity, without behavioral disturbance, psychotic disturbance, mood disturbance, and anxiety; N18.9 Chronic kidney disease, unspecified; E86.0 Dehydration; F25.9 Schizoaffective disorder, unspecified; E87.8 Other disorders of electrolyte and fluid balance, not elsewhere classified; E83.51 Hypocalcemia; E87.6 Hypokalemia; D64.9 Anemia, unspecified; E83.41 Hypermagnesemia; R13.10 Dysphagia, unspecified; B96.20 Unspecified Escherichia coli [E. coli] as the cause of diseases classified elsewhere; N30.90 Cystitis, unspecified without hematuria; E03.9 Hypothyroidism, unspecified; E83.39 Other disorders of phosphorus metabolism; G31.9 Degenerative disease of nervous system, unspecified; Z68.25 Body mass index [BMI] 25.0-25.9, adult
CPT/HCPCS: 36415; 36600; 70450; 71045; 76770; 80048; 80053; 80202; 80305; 81001; 82140; 82150; 82803; 83036; 83605; 83690; 83735; 83880; 83935; 84100; 84300; 84439; 84443; 84484; 85025; 85610; 85730; 87040; 87077; 87081; 87086; 92526; 93005; 94640; 96374; 97112; 97163-GP; 99291; C9113; J1120; J1644; J2543; J2920; J3370; J3480; J3490; J7060; Q0092

== ENCOUNTER 2022-07-01 19:24 | Inpatient (IN) | payer OTHER ==
[~2022-07-01] VITALS: Ht 160 cm; Wt 54.0 kg
[~2022-07-01 19:24] MED LIST: ASCO-518 PO; DIVA250E1 PO; PIPE50SO5 IV; PRED20TA5 PO; RISP0.5T3 PO; TRAZ-343 PO; VITA1TAB44 PO
--- NOTE | 2022-07-01 19:29 | NUR ---
PT BIBA BLS ER BED 12
[2022-07-01 19:37] VITALS: BP 150/90
--- NOTE | 2022-07-01 20:00 | NUR ---
FIRST CONTACT WITH PT. SEE INITIAL ASSESSMENT. NO S/S OF DISTRESS NOTED. RR EVEN AND UNLABORED. WILL CONTINUE TO MONITOR. PAIN/COMFORT.
[2022-07-01 21:41] LABS: BASOPHILS # (AUTO) 0.1 K/uL (0.00-0.22); BASOPHILS % (AUTO) 0.5 % (0.0-2.0); EOSINOPHILS % (AUTO) 0.1 % (0.0-4.0); HEMATOCRIT 30.9 % (36-48); HEMOGLOBIN 10.1 g/dL (12.0-16.0); LYMPHOCYTES # (AUTO) 2.3 K/uL (2.5-16.5); LYMPHOCYTES % (AUTO) 14.7 % (20.5-51.1); MEAN CORPUSCULAR HEMOGLOBIN 31 pg (27-31); MEAN CORPUSCULAR HGB CONC 33 g/dL (33-37); MEAN CORPUSCULAR VOLUME 93.4 fL (80-94); MONOCYTES # (AUTO) 0.6 K/uL (0.8-1.0); MONOCYTES % (AUTO) 4.1 % (1.7-9.3); NEUTROPHILS # (AUTO) 12.6 K/uL (1.8-7.7); NEUTROPHILS % (AUTO) 80.6 % (42.2-75.2); PLATELET COUNT (AUTO) 286 K/uL (140-450); RED BLOOD CELL COUNT(AUTO) 3.31 MIL/uL (4.20-5.40); RED CELL DISTRIBUTION WIDTH 14.7 % (11.6-13.7); WHITE BLOOD COUNT (AUTO) 15.7 K/uL (4.8-10.8)
[2022-07-01 21:53] LABS: ALBUMIN 2.2 g/dL (3.4-5.0); ANION GAP 8.4 (8-16); CREATININE 0.7 mg/dL (0.6-1.3); POTASSIUM 3.4 mmol/L (3.5-5.1); TOTAL BILIRUBIN 0.2 mg/dL (0.0-1.0)
--- NOTE | 2022-07-01 22:15 | NUR ---
DR. RAMIREZ AT BEDSIDE.
[2022-07-01] MEDS ORDERED: NACL 0.9% 1,000 ML IV ONE (22:50)
--- NOTE | 2022-07-01 23:03 | NUR ---
FAUSTIN CATHETER PLACED, URINE COLLECTED AND SENT TO LAB. PHOTOS TAKEN OF WOUND TO COCCYX.
[2022-07-01 23:09] LABS: APPEARANCE,URINE CLEAR (CLEAR); BILIRUBIN,URINE NEGATIVE (NEGATIVE); BLOOD, URINE NEGATIVE (NEGATIVE); COLOR,URINE YELLOW (YELLOW); LEUKOCYTE ESTERASE ,URINE NEGATIVE (NEGATIVE); NITRITE, URINE NEGATIVE (NEGATIVE); UGLUCOSE NEGATIVE (NEGATIVE)
[2022-07-01] MEDS ORDERED: LORazepam 2 MG/ML VIAL IVP PRN (23:15)
[2022-07-01] MEDS ORDERED: MORPHINE SULFATE 2 MG/ML SYR IVP PRN (23:15)
[2022-07-01] MEDS ORDERED: MAG SULF 2000 MG/WATER PREMIX 50 ML IV PRN (23:15)
[2022-07-01] MEDS ORDERED: ZOLPIDEM 10 MG TAB PO PRN (23:15)
[2022-07-01] MEDS ORDERED: POTASSIUM CHLORIDE 10 MEQ TABER PO PRN (23:15)
[2022-07-01] MEDS ORDERED: DOCUSATE SODIUM 100 MG GELCAP PO PRN (23:15)
[2022-07-01] MEDS ORDERED: ONDANSETRON 4 MG/2 ML VIAL IVP PRN (23:15)
[2022-07-01] MEDS ORDERED: ACETAMINOPHEN 325 MG TAB PO PRN (23:15)
--- NOTE | 2022-07-01 23:15 | NUR ---
ATTEMPTED TO PRINT WOUND PICTURES. NO INK AVAILABLE. CHARGE NURSE AWARE.
[2022-07-01 23:25] LABS: RBC,URINE 0-5 /HPF (0-5)
--- NOTE | 2022-07-01 23:39 | NUR ---
REPORT CALLED TO SASHA RICHTER WITH FULL RETURNED VERBAL UNDERSTANDING. PT GOING TO 106A. NO S/S OF DISTRESS NOTED.
--- NOTE | 2022-07-01 23:50 | NUR ---
RECEIVED PATIENT FROM ED VIA GURNEY. PATIENT IS AWAKE AND MUMBLES WORDS. PLACED ON TELE MONITOR. VSS. AFEBRILE. RESPIRATIONS EVEN AND UNLABORED. NO SOB NOTED. HL INTACT AND PATENT WITH NO REDNESS OR IRRITATION TO SITE. FAUSTIN CATH TO GRAVITY DRAINING CLEAR YELLOW URINE. PATIENT HAS PRESSURE ULCER TO COCCYX. PICTURES TAKEN AND OPTFOAM DRESSING APPLIED. NO ACUTE DISTRESS NOTED. ORIENTED TO ROOM AND CALL LIGHT SYSTEM. WILL CONTINUE TO MONITOR FOR SAFETY. Erik MITCHELL RN.
[2022-07-02 00:10] VITALS: BP 160/91
[2022-07-02] MEDS ORDERED: PIPERACILLIN/TAZOBACTAM 3.375 GM VIAL IV ONE ×2 (01:41→06:07)
[2022-07-02] MEDS: PIPERACILLIN/TAZOBACTAM 3.375 GM in DEXTROSE 5% 50 ML IV SCH ×4 (01:43→21:34)
[2022-07-02 04:00] VITALS: BP 121/84
[2022-07-02] MEDS: DIVALPROEX 250 MG TABEC PO SCH ×3 (05:00→21:35)
[2022-07-02 07:47] LABS: BASOPHILS % (AUTO) 0.2 % (0.0-2.0); EOSINOPHILS # (AUTO) 0.1 K/uL (0-0.4); EOSINOPHILS % (AUTO) 0.5 % (0.0-4.0); HEMATOCRIT 32.4 % (36-48); HEMOGLOBIN 10.5 g/dL (12.0-16.0); LYMPHOCYTES # (AUTO) 2.5 K/uL (2.5-16.5); LYMPHOCYTES % (AUTO) 16.3 % (20.5-51.1); MEAN CORPUSCULAR HEMOGLOBIN 31 pg (27-31); MEAN CORPUSCULAR HGB CONC 32 g/dL (33-37); MEAN CORPUSCULAR VOLUME 94.3 fL (80-94); MONOCYTES # (AUTO) 0.6 K/uL (0.8-1.0); NEUTROPHILS # (AUTO) 12.1 K/uL (1.8-7.7); PLATELET COUNT (AUTO) 279 K/uL (140-450); RED BLOOD CELL COUNT(AUTO) 3.43 MIL/uL (4.20-5.40); RED CELL DISTRIBUTION WIDTH 14.9 % (11.6-13.7); WHITE BLOOD COUNT (AUTO) 15.3 K/uL (4.8-10.8)
[2022-07-02 08:11] LABS: ANION GAP 12.1 (8-16); CARBON DIOXIDE 27.5 mmol/L (21-32); CREATININE 0.7 mg/dL (0.6-1.3); POTASSIUM 3.6 mmol/L (3.5-5.1)
[2022-07-02] MEDS ORDERED: NACL 0.45% 1,000 ML IV ONE (11:40)
--- NOTE | 2022-07-02 12:09 | NUR ---
PATIENT HAS BEEN SCREENED AND CATEGORIZED HIGH NUTRITION RISK. PATIENT WILL BE SEEN WITHIN 1-2 DAYS OF ADMISSION. 07/02/2212/11/22 CONSULT RECEIVED FOR WOUNDS/PRESSURE INJURY TACO ROBB RD
--- NOTE | 2022-07-02 14:08 | NUR ---
07/02/22 RD INITIAL ASSESSMENT COMPLETED PLEASE REFER TO NUTRITION ASSESSMENT UNDER CARE ACTIVITY FOR ESTIMATED NUTRITIONAL NEEDS. 1. RECOMMEND CARDIAC DIET TOLERATED 2. RECOMMEND ENSURE 1XDAY TO PROMOTE WOUND HEALING 3. MONITOR PO INTAKE 4. RD TO FOLLOW-UP 3-5 DAYS, MODERATE RISK TACO ROBB RD
[2022-07-02 20:00] VITALS: BP 97/58
[2022-07-03] VITALS: BP 115/76
[2022-07-03 04:00] VITALS: BP 107/66
[2022-07-03] MEDS: PIPERACILLIN/TAZOBACTAM 3.375 GM in DEXTROSE 5% 50 ML IV SCH ×3 (04:53→21:12)
[2022-07-03] MEDS: DIVALPROEX 250 MG TABEC PO SCH (04:59)
--- NOTE | 2022-07-03 07:31 | NUR ---
REPORT GIVEN TO NEELAM ANDERSON FOR CONTINUITY OF CARE. ALL QUESTIONS ANSWERED.
--- NOTE | 2022-07-03 07:32 | NUR ---
RECEIVED BEDSIDE REPORT FROM CARLOS SAFETY INSPECTOR RN, FOR CONTINUITY OF CARE. OPENS EYES TO VOICE. VERBALLY RESPONSIVE AT TIMES. SOMEWHAT LETHARGIC. 2L NC. SR ON MONITOR. 22G IV TO R HAND INFUSING NS TKO. BOWEL SOUNDS HYPOACTIVE. F/C TO GRAVITY. STANDARD PRECAUTION. CALL LIGHT WITHIN REACH. BED LOCKED AND IN LOWEST POSITION.
[2022-07-03 07:51] LABS: BASOPHILS # (AUTO) 0.1 K/uL (0.00-0.22); EOSINOPHILS # (AUTO) 0.2 K/uL (0-0.4); EOSINOPHILS % (AUTO) 1.5 % (0.0-4.0); HEMOGLOBIN 10.1 g/dL (12.0-16.0); MEAN CORPUSCULAR HEMOGLOBIN 31 pg (27-31); MEAN CORPUSCULAR HGB CONC 33 g/dL (33-37); MEAN CORPUSCULAR VOLUME 95.1 fL (80-94); MONOCYTES # (AUTO) 0.4 K/uL (0.8-1.0); MONOCYTES % (AUTO) 4.3 % (1.7-9.3); NEUTROPHILS # (AUTO) 7.4 K/uL (1.8-7.7); NEUTROPHILS % (AUTO) 73.2 % (42.2-75.2); PLATELET COUNT (AUTO) 266 K/uL (140-450); RED BLOOD CELL COUNT(AUTO) 3.26 MIL/uL (4.20-5.40); WHITE BLOOD COUNT (AUTO) 10.1 K/uL (4.8-10.8)
[2022-07-03 08:00] VITALS: BP 120/71
[2022-07-03 08:09] LABS: ANION GAP 11.3 (8-16); CARBON DIOXIDE 29.7 mmol/L (21-32); CREATININE 0.8 mg/dL (0.6-1.3)
[2022-07-03] MEDS: NACL 0.45% 1,000 ML IV SCH ×2 (11:43→20:25)
[2022-07-03 12:00] VITALS: BP 113/70
[2022-07-03] MEDS ORDERED: POTASSIUM CHLORIDE 20% 40 MEQ/15 ML UDC GT ONE (12:20)
[2022-07-03] MEDS: VALPROIC ACID 250 MG/5 ML UDC PO SCH ×2 (12:26→21:12)
--- NOTE | 2022-07-03 12:30 | NUR ---
K+ 3.0. ADMINISTERED 40MEQ POTASSIUM ELIXIR PO. PT TOLERATED WELL.
[2022-07-03 16:00] VITALS: BP 100/55
--- NOTE | 2022-07-03 18:03 | NUR ---
PT RESTING COMFORTABLY IN BED, ALL COMFORT NEEDS MET AT THIS TIME. CALL LIGHT WITHIN REACH.
--- NOTE | 2022-07-03 19:10 | NUR ---
ENDORSED BEDSIDE REPORT TO NATHAN RESTAURANT CREW PERSON RN, FOR CONTINUITY OF CARE.
[2022-07-03 20:00] VITALS: BP 104/60
--- NOTE | 2022-07-03 20:00 | NUR ---
RECEIVED REPORT FROM NURSE EVANS FOR CONTINUITY OF CARE. PT AWAKE IN BED. RESPIRATIONS EVEN AND UNLABORED ON 2L NC. NO DISTRESS NOTED. NO SIGNS OF PAIN. ON CERTIFIED DRIVER EXAMINER. WITH FAUSTIN CATHETER INTACT AND DRAINING WELL. IV SITE ON RIGHT HAND 22G, INFUSING 1/2 NS AT 100 ML/HR. CALL LIGHT WITHIN REACH. SAFETY PRECAUTIONS IN PLACE.
--- NOTE | 2022-07-03 21:19 | NUR ---
ADMINISTERED DUE MEDS. IV ABX ADMINISTERED BY NEELAM HERNANDEZ. NO ADVERSE REACTION NOTED.
[2022-07-04] VITALS: BP 124/79
--- NOTE | 2022-07-04 | NUR ---
REPOSITIONED PT. V/S TAKEN. PT CONTINUOUSLY MONITORED.
[2022-07-04] MEDS: NACL 0.45% 1,000 ML IV SCH (00:55)
--- NOTE | 2022-07-04 03:49 | NUR ---
V/S TAKEN. REPOSITIONED PT. CHANGED DIAPER. PT REMAINED CLEAN AND DRY.
[2022-07-04 04:00] VITALS: BP 94/53
[2022-07-04] MEDS: VALPROIC ACID 250 MG/5 ML UDC PO SCH ×2 (05:23→12:22)
[2022-07-04] MEDS: PIPERACILLIN/TAZOBACTAM 3.375 GM in DEXTROSE 5% 50 ML IV SCH ×2 (05:32→12:22)
--- NOTE | 2022-07-04 07:16 | NUR ---
GAVE BEDSIDE REPORT TO DAY SHIFT NURSE CHRISTIE FOR CONTINUITY OF CARE. ALL NEEDS MET THROUGHOUT SHIFT. PT IS STABLE.
--- NOTE | 2022-07-04 07:30 | NUR ---
RECEIVED REPORT FROM NIGHTSHIFT NURSE. PT AWAKE AND VERBALIZES SOME WORDS. ON 2L NC. CARDIAC DIET. FAUSTIN VIA GRAVITY. 1/2 NS @ 100 ML/HR ON R HAND #22. IN NO ACUTE DISTRESS. NO SOB NOTED. ALL NEEDS MET AT THIS TIME. ALL SAFETY MEASURES IN PLACE.
[2022-07-04 07:59] LABS: BASOPHILS # (AUTO) 0.1 K/uL (0.00-0.22); BASOPHILS % (AUTO) 0.5 % (0.0-2.0); EOSINOPHILS # (AUTO) 0.1 K/uL (0-0.4); EOSINOPHILS % (AUTO) 0.7 % (0.0-4.0); HEMATOCRIT 32.4 % (36-48); HEMOGLOBIN 11.3 g/dL (12.0-16.0); LYMPHOCYTES # (AUTO) 1.7 K/uL (2.5-16.5); LYMPHOCYTES % (AUTO) 12.7 % (20.5-51.1); MEAN CORPUSCULAR HEMOGLOBIN 33 pg (27-31); MEAN CORPUSCULAR HGB CONC 35 g/dL (33-37); MEAN CORPUSCULAR VOLUME 94.5 fL (80-94); MONOCYTES # (AUTO) 0.3 K/uL (0.8-1.0); MONOCYTES % (AUTO) 2.4 % (1.7-9.3); NEUTROPHILS # (AUTO) 11.4 K/uL (1.8-7.7); NEUTROPHILS % (AUTO) 83.7 % (42.2-75.2); PLATELET COUNT (AUTO) 295 K/uL (140-450); RED BLOOD CELL COUNT(AUTO) 3.43 MIL/uL (4.20-5.40); RED CELL DISTRIBUTION WIDTH 15.2 % (11.6-13.7); WHITE BLOOD COUNT (AUTO) 13.6 K/uL (4.8-10.8)
[2022-07-04 08:00] VITALS: BP 139/73
[2022-07-04 08:14] LABS: ANION GAP 16.7 (8-16); CARBON DIOXIDE 23.8 mmol/L (21-32); CREATININE 0.8 mg/dL (0.6-1.3); POTASSIUM 3.5 mmol/L (3.5-5.1)
--- NOTE | 2022-07-04 11:00 | NUR ---
WOUND CARE NURSE COMPLETED DRESSING CHANGE. FAUSTIN VIA GRAVITY. ALL NEEDS MET. ALL SAFETY MEASURES IN PLACE.
--- NOTE | 2022-07-04 11:04 | NUR ---
WOUND CARE EVALUATION NOTE: SKIN ASSESSMENT DONE WITH PRIMARY RN JOANNE ON THIS 67 Y/O PT. ADMITTED FROM SNF WITH SOB AND TACHYCARDIA. PAST MEDICAL HX INCLUDES COPD, SCHIZOAFFECTIVE TYPE BIPOLAR, MDD, DEMENTIA, AND CKD. PT ADMITTED WITH UNSTAGEABLE COCCYX WOUND TO SACRAL AREA. PT. IS ON NC, NO SOB WHEN TURN AND REPOSITION. PT IS AWAKE, SKIN IS WARM AND MOIST, BLE HAIR GROWTH, +1 EDEMA. DORSAL PEDAL PULSES PRESENT AND NORMAL, BILATERAL HEELS BLANCHABLE REDNESS. HEELS OFFLOAD, PT IS WITH F/C EVIDENCE OF LEAKAGE, PRIMARY RN NOTIFIED. PT IS VERY HI RISK OF FURTHER SKIN BREAKS. POC DISCUSSED WITH PRIMARY RN CHRISTIE. COMORBIDITIES RELATED TO DELAY WOUND HEALING, FURTHER SKIN BREAKS AND UN-AVOIDABLE PRESSURE INJURY: BOWEL INCONTINENCE, INFECTION, MALNUTRITION, HYPOXEMIC DECREASE TISSUE PERFUSION, TISSUE ISCHEMA, DECREASE MOBILITY AND FUNCTIONAL ABILITIES, AND HOB ELEVATED THE MAJORITY OF TIMES DUE TO MEDICAL REASONS. INTEGUMENTARY: -ORAL MEMBRANE PINK INTACT, LIPS, CHEEKS SKIN DRY, NO OPEN WOUNDS -MOISTURE ASSOCIATED DERMATITIS PERINEUM/INNER THIGHS, LOWER BUTTOCKS AND CHELLY-ANAL, SKIN RED AND MOIST -COCCYX PRESSURE INJURY UN-STAGEABLE 2X1CM 100% YELLOW SLOUGH TISSUE, CHELLY-WOUND SKIN MOIST DENUDED SKIN, SURROUNDING NON-BLANCHABLE REDNESS EXTENDED TO SACRAL AREA FURTHER DAMAGE INDICATED RECOMMENDATIONS: -ORAL CARE Q SHIFT -APPLY Z-GUARD TO PERINEUM/INNER THIGHS, LOWER BUTTOCKS AND CHELLY-ANAL BID AND PRN IF SOILING -CLEANSE WITH NS, PAT DRY, APPLY THERAHONEY GEL TO WOUND BED THEN COVER WITH FOAM DRESSING TO SACRALCOCCYX, QD AND PRN IF SOILING, OFFLOAD AREA -APPLY SKIN PREP WIPE TO BILATERAL HEELS BID AND PRN IF SOILING -POSITIONING: TURN AND REPOSITION PATIENT Q 2H OR SOONER USE PILLOWS TO KEEP BONY PROMINENCES FROM DIRECT CONTACT WITH SURFACES USE REPOSITIONING WEDGES TO PROVIDE 30-DEGREE ANGLE FOR SIDE LYING POSITIONS OFFLOADING OR FOAM DRESSING TO ALL TUBING TO PREVENT MEDICAL DEVICES RELATED PRESSURE INJURY -RE-EVALUATING AND MANAGING INCONTINENCE MONITOR SKIN CONDITION DURING POSITION CHANGE DO NOT MASSAGE REDNESS, BONY PROMINENCES FREQUENT CHELLY-CARE AND PROVIDE BARRIER CREAMS PRN IF SOILING MOISTURE CONTROL BY OFFER BED MIXON/URINAL /ABSORBENT PAD TO WICK AND HOLD MOISTURE. MAY OBTAIN ORDER FOR FLEX SEAL, RECTAL BAG OR FAUSTIN CATHETER PER PHYSICIAN ORDER UNLESS OTHERWISE CONTRAINDICATED KEEP SKIN DRY AND PROTECT FROM FRICTION -MANAGE FRICTION/SHEAR/MOBILITY KEEP HOB AT THE LOWEST LEVEL OF ELEVATION NO MORE THAN 30 DEGREES UNLESS OTHERWISE CONTRAINDICATED USE LIFT SHEET OR TRANSFER DEVICE TO MOVE PATIENT AND PREVENT LATERAL SHEER. CONSIDER TRAPEZE IF APPROPRIATE PROTECT HEELS, ELBOWS BONY PROMINENCES WITH SKIN BERRIES OR FOAM DRESSING IF EXPOSED TO FRICTION OFFLOAD BILATERAL HEELS BY PLACING PILLOWS UNDER CALVES AT ALL TIMES, UNLESS OTHERWISE CONTRAINDICATED -PRESSURE REDISTRIBUTION SURFACE THERAPY NAMITA ISOFLEX ABHISHEK MATTRESS -NUTRITION: PLEASE FOLLOW RD RECOMMENDATIONS AND OFFER NUTRITION SUPPLEMENTS IF ORDERED.
[2022-07-04] MEDS ORDERED: THERAHONEY GEL 42.5 GM TP PRN (11:10)
[2022-07-04] MEDS ORDERED: Z-GUARD PASTE TP PRN (11:10)
[2022-07-04 12:00] VITALS: BP 98/55
[2022-07-04] MEDS ORDERED: THERAHONEY GEL 42.5 GM TP SCH (13:00)
[2022-07-04] MEDS ORDERED: MAGNESIUM HYDROXIDE 2400 MG/30 ML UDC PO PRN (13:00)
[2022-07-04] MEDS ORDERED: Z-GUARD PASTE TP SCH (13:00)
--- NOTE | 2022-07-04 15:16 | NUR ---
RECEIVED ORDER FOR DC PLANNING TO SNF FOR IV ROCEPHIN DAILY X 3 DAYS AND PT. LEFT A MESSAGE TO VANDANA ELKINS [phone], REGARDING DC PLAN. BRENDA INFORMED AND IS ABLE TO ACCEPT THE PATIENT BACK. PER MOE THEY WILL ARRANGE TRANSPORTATION. [facility]E REQUESTED TO ARRANGE FOR 1700 CHIEF METER READER.
[2022-07-04 16:00] VITALS: BP 99/60
[2022-07-04 16:12] VITALS: BP 99/60
[2022-07-04] MEDS ORDERED: ROC2I IV (16:26)
--- NOTE | 2022-07-04 16:42 | NUR ---
REPORT GIVEN TO FAVIAN PATTON [facility].
--- NOTE | 2022-07-04 16:50 | NUR ---
PT TRANSPORTED BY [facility].
== END 2022-07-04 16:55 | DRG 871 ==
LOC: MED 19:24 → MTU 23:12
PROVIDERS: ADMIT Family Medicine; ATTEND Family Medicine
DX: A41.9 Sepsis, unspecified organism (principal); E43 Unspecified severe protein-calorie malnutrition; G93.41 Metabolic encephalopathy; N39.0 Urinary tract infection, site not specified; Z20.822 Contact with and (suspected) exposure to COVID-19; F03.90 Unspecified dementia, unspecified severity, without behavioral disturbance, psychotic disturbance, mood disturbance, and anxiety; D64.9 Anemia, unspecified; Z68.21 Body mass index [BMI] 21.0-21.9, adult
CPT/HCPCS: 36415; 70450; 71045; 80048; 80053; 81001; 83605; 83735; 83880; 84484; 85025; 87040; 87081; 87086; 96360; 97163-GP; 97530; 99285; J2270; J2543; J7060; Q0092